=== PATIENT | male | born 1980 | race American Indian/Alaskan Native ===

== ENCOUNTER 2021-02-07 19:50 | Emergency (ER) | payer BC ==
[2021-02-07 21:03] VITALS: BP 145/98
--- NOTE | 2021-02-07 21:53 | Emergency Department Report ---
ED General Adult HPI - General Chief complaint: Skin/Abscess/Foreign Body Stated complaint: BOIL ON RT HAND, COLD IN CHEST, FINGER INJURY, Time Seen by Provider: 02/07/21 21:17 Source: patient Mode of arrival: Ambulatory Limitations: No Limitations - History of Present Illness Initial comments: 40 year old male with past medical hx of HIV presents to ED with complaints of cough and swollen painful area to palm of his right hand. She states that he has been having dry peeling flaky rash to his hands for the past few days, and a couple days ago he noticed a painful area to the center palmar aspect of his right hand which has been getting worse. Patient states that to try to relieve the pressure, he stuck the area with a needle, and drained a lot of pus, but he states that area is still swollen and painful. He reports increased pain with movement of his fingers. He denies any fever or chills. He States that he has never had an abscess in the past. Patient also reports that he has had a productive cough for the past 3 days. He has been using multiple [id number] medication without much relief. He does admit to tobacco use. He denies any associated chest pain, shortness of breath, wheezing, fever or chills or any URI symptoms. He denies any history of lung disease. He denies any known ill contacts or recent travel. MD Complaint: Cough/hand pain and swelling -: Gradual - Related Data Previous Rx's Medication Instructions Recorded Last Taken Type Benzonatate [Tessalon Perles] 100 mg PO Q8HR PRN #30 capsule 02/07/21 Unknown Rx Cetirizine HCl [Zyrtec 10mg tab] 10 mg PO DAILY #30 tablet 02/07/21 Unknown Rx HYDROcodone/APAP 5-325 [Modena 1 each PO Q6HR PRN #12 tablet 02/07/21 Unknown Rx 5/325] Sulfamethoxazole/Trimethoprim 1 each PO BID #14 tablet 02/07/21 Unknown Rx [Bactrim 400-80 mg Tablet] Triamcinolone 0.1% [Kenalog 0.1% 1 applic TP TID #1 tube 02/07/21 Unknown Rx CREAM] ED Review of Systems ROS: Stated complaint: BOIL ON RT HAND, COLD IN CHEST, FINGER INJURY, Other details as noted in HPI Comment: All other systems reviewed and negative Constitutional: denies: chills, fever Eyes: denies: eye pain, eye discharge, vision change ENT: denies: ear pain, throat pain Respiratory: cough. denies: shortness of breath, SOB with exertion, SOB at rest, wheezing Cardiovascular: denies: chest pain, palpitations Gastrointestinal: denies: abdominal pain, nausea, diarrhea, constipation, hematemesis, hematochezia Genitourinary: denies: urgency, dysuria, frequency, hematuria, discharge, testicular pain, testicular mass Skin: other (Abscess to the palmar surface of the right hand). denies: rash, lesions Neurological: denies: headache, weakness, numbness, paresthesias, confusion, abnormal gait, vertigo Psychiatric: denies: anxiety, depression, auditory hallucinations, visual hallucinations, homicidal thoughts, suicidal thoughts Hematological/Lymphatic: denies: easy bleeding, easy bruising, swollen glands, other ED Past Medical Hx - Past Medical History Previous Medical History?: No - Social History Smoking Status: Never Smoker - Medications Home Medications: Home Medications Medication Instructions Recorded Confirmed Last Taken Type Benzonatate [Tessalon Perles] 100 mg PO Q8HR PRN #30 capsule 02/07/21 Unknown Rx Cetirizine HCl [Zyrtec 10mg tab] 10 mg PO DAILY #30 tablet 02/07/21 Unknown Rx HYDROcodone/APAP 5-325 [Modena 1 each PO Q6HR PRN #12 tablet 02/07/21 Unknown Rx 5/325] Sulfamethoxazole/Trimethoprim 1 each PO BID #14 tablet 02/07/21 Unknown Rx [Bactrim 400-80 mg Tablet] Triamcinolone 0.1% [Kenalog 0.1% 1 applic TP TID #1 tube 02/07/21 Unknown Rx CREAM] ED Physical Exam - General Limitations: No Limitations General appearance: alert, in no apparent distress - Head Head exam: Present: atraumatic, normocephalic, normal inspection - Eye Eye exam: Present: normal appearance, PERRL, EOMI Pupils: Present: normal accommodation - Neck Neck exam: Present: normal inspection, full ROM - Respiratory Respiratory exam: Present: normal lung sounds bilaterally. Absent: respiratory distress, wheezes, rales, rhonchi, stridor - Cardiovascular Cardiovascular Exam: Present: regular rate, normal rhythm, normal heart sounds - Expanded Upper Extremity Exam Right Hand Wrist exam: Present: tenderness (Small to medium sized tender, irritated, slightly erythematous, fluctuant area noted to the center palmar aspect of the right hand. No streaking cellulitis no significant lymphangitis. He has full flexion extension of the fingers.) Vascular: Present: normal capillary refill, radial pulse (Normal). Absent: vascular compromise - Neurological Exam Neurological exam: Present: alert, oriented X3, CN II-XII intact, normal gait - Psychiatric Psychiatric exam: Present: normal affect, normal mood - Skin Skin exam: Present: intact (Dry flaky peeling rash noted diffusely to both hands and fingers), rash ED Course Vital Signs 02/07/21 21:00 Temperature 99.1 F Pulse Rate 96 H Respiratory 18 Rate Blood Pressure 145/98 O2 Sat by Pulse 99 Oximetry - I & D Left Palm Hand Type of Procedure: Simple Site: nicole surface left hand Blade Size: 11 I & D Procedure: betadine prep Progress: 1% lidocaine used to infiltrate the area. Incision was made using 11 inch blade. Moderate amount of pus drained. Wound irrigated. No packing placed. Dressing applied. Patient tolerated procedure well without any complications. ED Medical Decision Making - Radiology Data Radiology results: report reviewed Patient: ROSALIA RICHMOND MR#: [id number] : 1980 Acct:[id number] Age/Sex: 40 / M ADM Date: 02/07/21 Loc: ED Attending Dr: Ordering Physician: PHILLIP JOHNSON Date of Service: 02/07/21 Procedure(s): XR chest routine 2V Accession Number(s): [id number] cc: PHILLIP JOHNSON Fluoro Time In Minutes: CHEST 2 VIEWS INDICATION / CLINICAL INFORMATION: cough. COMPARISON: None available. FINDINGS: SUPPORT DEVICES: None. HEART / MEDIASTINUM: No significant abnormality. LUNGS / PLEURA: No significant pulmonary or pleural abnormality. No pneumothorax. ADDITIONAL FINDINGS: No significant additional findings. IMPRESSION: 1. No acute findings. Signer Name: Pj Anand DO Signed: 02/07/2021 10:35 PM Workstation Name: [id number] Transcribed By: NS Dictated By: PJ ANAND DO Electronically Authenticated By: PJ ANAND DO Signed Date/Time: 02/07/212234 DD/ 33 TD/TT: Patient: ROSALIA RICHMOND MR#: [id number] : 1980 Acct:[id number] Age/Sex: 40 / M ADM Date: 02/07/21 Loc: ED Attending Dr: Ordering Physician: PHILLIP JOHNSON Date of Service: 02/07/21 Procedure(s): XR hand 3+V RT Accession Number(s): [id number] cc: PHILLIP JOHNSON Fluoro Time In Minutes: RIGHT HAND 3 VIEW(S) INDICATION / CLINICAL INFORMATION: swelling/pain COMPARISON: None available. FINDINGS: BONES / JOINT(S): No acute fracture or subluxation. No significant arthritis. SOFT TISSUES: No significant abnormality. ADDITIONAL FINDINGS: None. Signer Name: Pj Anand DO Signed: 02/07/2021 10:34 PM Workstation Name: [id number] Transcribed By: RICARDO Dictated By: PJ ANAND DO Electronically Authenticated By: PJ ANAND DO Signed Date/Time: 02/07/212233 DD/ 33 TD/TT: - Medical Decision Making 2350: Xray of chest and hand shows nothing acute. Pt with small abscess about size of quarter to center palmar aspect of his hand without any significant cellulitis or lymphangitis or apparent signs of a deep space abscess. He is able to flex and extend his fingers with some pain but otherwise he does have full flexion extension of his fingers. I&D of the abscess was done by me. See procedure note for detail. He also has an associated dry flaky rash diffusely to his bilateral hands, could be related to contact dermatitis, but patient also admits that he washes his hands very frequently and also uses gloves frequently which I recommended he avoid doing. She washes it only as needed and only regular dose if needed. Patient will be started on antibiotics, and wound care discussed with patient. His cough could be related to a viral illness. He was started on prescription cough medication as well as Zyrtec. He will be given referral to hand specialist as well as PCP for follow-up. Discussed all instructions with patient. He expressed understanding of instructions and agree with plan. Patient was stable at time of discharge. Critical care attestation.: If time is entered above; I have spent that time in minutes in the direct care of this critically ill patient, excluding procedure time. ED Disposition Clinical Impression: Abscess of left hand, Cough, Hand dermatitis Disposition: 01 HOME / SELF CARE / HOMELESS Is pt being admited?: No Does the pt Need Aspirin: No Condition: Stable Instructions: Cough, Adult, [id number], Skin Abscess, [id number], Contact Dermatitis Additional Instructions: I recommend taking the Bactrim as prescribed until completion. Take the hydrocodone as prescribed to help with pain. Keep the wound clean daily with soap and water. Recommend that you do not manipulate the area and allow it to heal. Use the triamcinolone cream to help with the rash on your hand, but do not apply it on the wound. If the rash in your hand continue to persist I do recommend following up with local head knitting machine fixer. I recommend that you take the Tessalon Perles and the Zyrtec as prescribed to help with any URI symptoms and cough. Return to the ER if your symptoms changes or worsens in any way. Prescriptions: Sulfamethoxazole/Trimethoprim [Bactrim 400-80 mg Tablet] 1 each PO BID #14 tablet Triamcinolone 0.1% [Kenalog 0.1% CREAM] 1 applic TP TID #1 tube HYDROcodone/APAP 5-325 [Modena 5/325] 1 each PO Q6HR PRN #12 tablet PRN Reason: Pain Benzonatate [Tessalon Perles] 100 mg PO Q8HR PRN #30 capsule PRN Reason: Cough Cetirizine HCl [Zyrtec 10mg tab] 10 mg PO DAILY #30 tablet Referrals: PRIMARY CARE, [Primary Care Provider] - 3-5 Days [facility] [Provider Group] - 3-5 Days (Primary care physician ) [facility] [Provider Group] - 3-5 Days (Orthopedic/Hand surgeons) Forms: Work/School Release Form(ED) Time of Disposition: 23:41
--- NOTE | 2021-02-07 22:39 | XRay Report ---
CHEST 2 VIEWS INDICATION / CLINICAL INFORMATION: cough. COMPARISON: None available. FINDINGS: SUPPORT DEVICES: None. HEART / MEDIASTINUM: No significant abnormality. LUNGS / PLEURA: No significant pulmonary or pleural abnormality. No pneumothorax. ADDITIONAL FINDINGS: No significant additional findings. IMPRESSION: 1. No acute findings. Signer Name: jP Siddiqui DO Signed: 02/07/2021 10:35 PM Workstation Name: [id number]
--- NOTE | 2021-02-07 22:39 | XRay Report ---
RIGHT HAND 3 VIEW(S) INDICATION / CLINICAL INFORMATION: swelling/pain COMPARISON: None available. FINDINGS: BONES / JOINT(S): No acute fracture or subluxation. No significant arthritis. SOFT TISSUES: No significant abnormality. ADDITIONAL FINDINGS: None. Signer Name: Pj Siddiqui DO Signed: 02/07/2021 10:34 PM Workstation Name: [id number]
[2021-02-07] MEDS ORDERED: LIDOCAINE 1%/EPINEPHRINE 1:100,000 VIAL (20 ML) INFILTRATI NR (22:45)
== END 2021-02-07 23:57 | disposition home or self-care (01) ==
LOC: ED 19:50
DX: L02.511 Cutaneous abscess of right hand (principal); R05.9 Cough, unspecified; L30.8 Other specified dermatitis
CPT/HCPCS: 71046; 99283